=== PATIENT | female | born 1975 | race African-American/Black ===

== ENCOUNTER 2019-03-02 10:43 | Emergency (ER) | payer MEDICAID ==
[~2019-03-02] VITALS: Ht 167.6 cm; Wt 104.0 kg
[2019-03-02 10:53] VITALS: BP 145/86
[2019-03-02] MEDS ORDERED: KETOROLAC 60MG/2ML VIAL IM ONE (11:45)
== END 2019-03-02 13:23 | disposition home or self-care (01) ==
LOC: ER 11:56
DX: M75.32 Calcific tendinitis of left shoulder (principal); E03.9 Hypothyroidism, unspecified; F12.10 Cannabis abuse, uncomplicated; F17.210 Nicotine dependence, cigarettes, uncomplicated
CPT/HCPCS: 73030; 96372; 99283; J1885